=== PATIENT | male | born 1985 | race Caucasian/White ===

== ENCOUNTER 2025-01-04 09:58 | Emergency (ER) | payer SELFPAY ==
[~2025-01-04] VITALS: Ht 167.6 cm; Wt 84.8 kg
[2025-01-04 10:03] VITALS: BP 150/98; TEMP 98.1; O2SAT 99
== END 2025-01-04 11:40 | disposition left against medical advice (07) ==
LOC: ER 10:00
DX: S81.819A Laceration without foreign body, unspecified lower leg, initial encounter (principal); Z53.21 Procedure and treatment not carried out due to patient leaving prior to being seen by health care provider; X58.XXXA Exposure to other specified factors, initial encounter; Y93.89 Activity, other specified; Y92.89 Other specified places as the place of occurrence of the external cause; Y99.8 Other external cause status